=== PATIENT | female | born 1980 ===

== ENCOUNTER → 2017-12-25 | Day surgery (SDC) | payer BC ==
[~2017-12-25] MED LIST: Albuterol 0.083% 2.5 MG/3 ML Neb Soln NEB PRN; Bupivacaine 0.5% 30 ML SDV ONE; Dexamethasone 4 MG/ML 5 ML MDV ONE; HYDROmorphone 0.5 MG/0.5 ML Syringe IVPUSH PRN; HYDROmorphone 0.5 MG/0.5 ML Syringe ONE; Ketorolac 30 MG/ML SDV ONE; Lactated Ringers 1,000 ML ONE; Lidocaine 1% 4 ML ONE; Lidocaine 1% with EPINEPHrine 1:100,000 20 ML MDV ONE; Lidocaine 1%/Sod Bicarbonate in NS 8.4% 1 ML Syringe IDERM PRN; Midazolam 1 MG/ML 2 ML SDV IVPUSH PRN; Midazolam 1 MG/ML 2 ML SDV ONE; Neostigmine Methylsulfate 1 MG/ML 5 ML Syringe ONE; Ondansetron 4 MG/2 ML SDV IVPUSH PRN; Ondansetron 4 MG/2 ML SDV ONE; Propofol 200 MG/20 ML SDV ONE; Rocuronium 50 MG/5 ML Vial ONE; Sodium Chloride 0.9% 10 ML Syringe FLUSH PRN; Sodium Chloride 0.9% 50 ML SDV ONE; ceFAZolin 1 GM Vial ONE; diphenhydrAMINE 50 MG/ML SDV IVPUSH PRN; ePHEDrine 50 MG/ML SDV IVPUSH PRN; fentaNYL 100 MCG/2 ML SDV IVPUSH PRN; fentaNYL 250 MCG/5 ML SDV ONE; hydrOXYzine HCl 50 MG Tab PO ONE
[2017-12-25] MEDS: Lactated Ringers 1,000 ML IV SCH ×2 (07:05→10:01)
--- NOTE | 2017-12-25 07:31 | PCM.PREANE ---
Preanesthetic Assessment - Anesthesia/Transfusion/Family Hx Anesthesia History: Prior Anesthesia Without Reaction Family History of Anesthesia Reaction: No Transfusion History: No Prior Transfusion(s) Intubation History: Unknown - Review of Systems General: No Symptoms Pulmonary: No Symptoms (current every day smoker:1pack/day times 20 years) Cardiovascular: No Symptoms (Patient states HR always runs low.), Palpitations Gastrointestinal: No Symptoms (GERD), Abdominal Pain (#3/10), Diarrhea Neurological: No Symptoms Other: Reports: None, Depression - Physical Assessment NPO Status Date: 12/24/17 NPO Status Time: 22:00 Pulse: 46 O2 Sat by Pulse Oximetry: 99 Respiratory Rate: 16 Blood Pressure: 129/68 Temperature: 36.6 C Vital Signs: Last Vital Signs Temp 36.6 C 12/25/17 06:50 Pulse 46 L 12/25/17 06:50 Resp 16 12/25/17 06:50 BP 129/68 12/25/17 06:50 Pulse Ox 99 12/25/17 06:50 Height: 1.65 m Weight: 56.245 kg ASA Class: 2 Mental Status: Alert & Oriented x3 Airway Class: Mallampati = 2 Dentition: Reports: Partial (upper) Thyro-Mental Finger Breadths: 3 Mouth Opening Finger Breadths: 3 ROM/Head Extension: Full Lungs: Clear to Auscultation, Normal Respiratory Effort Cardiovascular: Regular Rate, Regular Rhythm, No Murmurs - Lab Values: Laboratory Last Values WBC 9.52 K/mm3 (3.98-10.04) 12/25/17 07:10 RBC 5.20 M/mm3 (3.98-5.22) 12/25/17 07:10 Hgb 15.1 gm/L (11.2-15.7) 12/25/17 07:10 Hct 44.0 % (34.1-44.9) 12/25/17 07:10 MCV 84.6 fl (79.4-94.8) 12/25/17 07:10 MCH 29.0 pg (25.6-32.2) 12/25/17 07:10 MCHC 34.3 g/dl (32.2-35.5) 12/25/17 07:10 RDW Std Deviation 40.4 fL (36.4-46.3) 12/25/17 07:10 Plt Count 291 K/mm3 (182-369) 12/25/17 07:10 MPV 10.3 fl (9.4-12.3) 12/25/17 07:10 Neut % (Auto) 49.2 % (34.0-71.1) 12/25/17 07:10 Lymph % (Auto) 36.9 % (19.3-51.7) 12/25/17 07:10 [place] % (Auto) 9.1 % (4.7-12.5) 12/25/17 07:10 Eos % (Auto) 4.5 (0.7-5.8) 12/25/17 07:10 Baso % (Auto) 0.1 % (0.1-1.2) 12/25/17 07:10 Neut # (Auto) 4.68 K/mm3 (1.56-6.13) 12/25/17 07:10 Lymph # (Auto) 3.51 K/mm3 (1.18-3.74) 12/25/17 07:10 [place] # (Auto) 0.87 K/mm3 (0.24-0.36) H 12/25/17 07:10 Eos # (Auto) 0.43 K/mm3 (0.04-0.36) H 12/25/17 07:10 Baso # (Auto) 0.01 K/mm3 (0.01-0.08) 12/25/17 07:10 Urine Color Light yellow (Yellow) 12/25/17 06:53 Urine Appearance Clear (Clear) 12/25/17 06:53 Urine pH 7.0 (5.0-8.0) 12/25/17 06:53 Ur Specific [place] 1.010 (1.005-1.030) 12/25/17 06:53 Urine Protein Negative (Negative) 12/25/17 06:53 Urine Glucose (UA) Negative (Negative) 12/25/17 06:53 Urine Ketones Negative (Negative) 12/25/17 06:53 Urine Occult Blood 2+ (Negative) H 12/25/17 06:53 Urine Nitrite Negative (Negative) 12/25/17 06:53 Urine Bilirubin Negative (Negative) 12/25/17 06:53 Urine Urobilinogen 0.2 (0.2-1.0) 12/25/17 06:53 Ur Leukocyte Esterase Negative (Negative) 12/25/17 06:53 Urine RBC 10-20 /hpf (0-5) H 12/25/17 06:53 Urine WBC 10-20 /hpf (0-5) H 12/25/17 06:53 Ur Epithelial Cells 0-5 /hpf (0-5) 12/25/17 06:53 Urine Bacteria Few /hpf (FEW) 12/25/17 06:53 Urine Mucus Not seen /hpf (FEW) 12/25/17 06:53 Urine HCG, Qual Negative (NEGATIVE) 12/25/17 06:33 All lab values reviewed and noted and within acceptable ranges to proceed with scheduled procedure. - Allergies Allergies/Adverse Reactions: Allergies Allergy/AdvReac Type Severity Reaction Status Date / Time No Known Allergies Allergy Verified 12/24/17 16:25 - Anesthesia Plan Pre-Op Medication Ordered: None - Acknowledgements Anesthesia Type Planned: General Anesthesia Pt an Appropriate Candidate for the Planned Anesthesia: Yes Alternatives and Risks of Anesthesia Discussed w Pt/Guardian: Yes Pt/Guardian Understands and Agrees with Anesthesia Plan: Yes PreAnesthesia Questionnaire HEENT History: Reports: Other (See Below) Other HEENT History: dentures Cardiovascular History: Reports: None Respiratory History: Reports: None Gastrointestinal History: Reports: None GAME WARDEN History: Reports: Other (See Below) Other OB/BYN History: pelvic pain, Musculoskeletal History: Reports: Other (See Below) Other Musculoskeletal History: right elbow dislocation, left wrist ganglion cyst removal Neurological History: Reports: None Psychiatric History: Reports: None Endocrine/Metabolic History: Reports: None Hematologic History: Reports: None Immunologic History: Reports: None Oncologic (Cancer) History: Reports: None Dermatologic History: Reports: None - Past Surgical History Head Surgeries/Procedures: Reports: None Cardiovascular Surgical History: Reports: None Respiratory Surgical History: Reports: None GI Surgical History: Reports: None Female Surgical History: Reports: Tubal Ligation Endocrine Surgical History: Reports: None Neurological Surgical History: Reports: None Musculoskeletal Surgical History: Reports: None Oncologic Surgical History: Reports: None Dermatological Surgical History: Reports: None - SUBSTANCE USE Smoking Status *Q: Current Every Day Smoker Recreational Drug Use History: No - HOME MEDS Home Medications: Home Meds Meloxicam 15 mg PO DAILY 12/24/17 [History] Pramipexole Di-HCl [Pramipexole Dihydrochloride] 0.5 mg PO BEDTIME 12/24/17 [ History] - CURRENT (IN HOUSE) MEDS Current Meds: Current Medications Lactated Ringer's (Ringers, Lactated) 1,000 mls @ 125 mls/hr IV ASDIRECTED DANNIE Stop: 12/25/17 23:00 Lidocaine/Sodium Bicarbonate (Buffered Lidocaine 1% In Ns 8.4%) 0.25 ml IDERM ONETIME PRN PRN Reason: Prior to IV Start Stop: 12/25/17 18:00 Sodium Chloride (Saline Flush) 10 ml FLUSH ASDIRECTED PRN PRN Reason: Keep Vein Open Stop: 12/25/17 18:00 Discontinued Medications Bupivacaine HCl (Marcaine 0.5%) Confirm Administered Dose 30 ml .ROUTE .STK-MED ONE Stop: 12/25/17 07:03 Cefazolin Sodium (Ancef) Confirm Administered Dose 2 gm .ROUTE .STK-MED ONE Stop: 12/25/17 07:10 Dexamethasone (Dexamethasone) Confirm Administered Dose 20 mg .ROUTE .STK-MED ONE Stop: 12/25/17 07:10 Fentanyl (Sublimaze) Confirm Administered Dose 250 mcg .ROUTE .STK-MED ONE Stop: 12/25/17 07:11 Lidocaine HCl (Xylocaine-Mpf 1%) Confirm Administered Dose 4 mls @ as directed .ROUTE .STK-MED ONE Stop: 12/25/17 07:10 Lactated Ringer's (Ringers, Lactated) Confirm Administered Dose 1,000 mls @ as directed .ROUTE .STK-MED ONE Stop: 12/25/17 07:10 Ketorolac Tromethamine (Toradol) Confirm Administered Dose 30 mg .ROUTE .STK- MED ONE Stop: 12/25/17 07:10 Lidocaine/Epinephrine (Xylocaine 1% With Epinephrine 1:100,000) Confirm Administered Dose 20 ml .ROUTE .STK-MED ONE Stop: 12/25/17 07:03 Midazolam HCl (Versed 1 Mg/Ml) Confirm Administered Dose 2 mg .ROUTE .STK-MED ONE Stop: 12/25/17 07:10 Ondansetron HCl (Zofran) Confirm Administered Dose 4 mg .ROUTE .STK-MED ONE Stop: 12/25/17 07:10 Propofol (Diprivan 20 Ml) Confirm Administered Dose 200 mg .ROUTE .STK-MED ONE Stop: 12/25/17 07:10 Rocuronium [place] (Zemuron) Confirm Administered Dose 50 mg .ROUTE .STK-MED ONE Stop: 12/25/17 07:10 Sodium Chloride (Normal Saline) Confirm Administered Dose 50 ml .ROUTE .STK-MED ONE Stop: 12/25/17 07:03
--- NOTE | 2017-12-25 09:25 | PCM.POSTAN ---
POST ANESTHESIA ASSESSMENT - MENTAL STATUS Mental Status: Alert - VITAL SIGNS Pulse Rate: 71 SaO2: 100 Resp Rate: 15 Blood Pressure: 108/80 Temperature: 36.0 C - RESPIRATORY Respiratory Status: Respiratory Rate WNL, Airway Patent, O2 Saturation Stable, Supplemental Oxygen - CARDIOVASCULAR CV Status: Pulse Rate WNL, Blood Pressure Stable - GASTROINTESTINAL GI Status: No Symptoms - POST OP HYDRATION Hydration Status: Adequate & Stable
[2017-12-25] MEDS: Acetaminophen/oxyCODONE 325-5 MG Tab PO PRN ×2 (10:15→15:00)
--- NOTE | 2017-12-25 12:47 | PCM48HPAN ---
Post Anesthesia Note - EVALUATION WITHIN 48HRS OF ANESTHETIC Vital Signs in Normal Range: Yes Patient Participated in Evaluation: Yes Respiratory Function Stable: Yes Airway Patent: Yes Cardiovascular Function Stable: Yes Hydration Status Stable: Yes Pain Control Satisfactory: Yes Nausea and Vomiting Control Satisfactory: Yes Mental Status Recovered: Yes
--- NOTE | 2017-12-26 08:13 | OR ---
DATE OF OPERATION: 12/25/2017 SURGEON: Anil Pulido MD PREOPERATIVE DIAGNOSIS: 1. Chronic pelvic pain. 2. Dysmenorrhea. POSTOPERATIVE DIAGNOSIS: 1. Chronic pelvic pain. 2. Dysmenorrhea. 3. Pelvic adhesions. ANESTHESIA: General endotracheal anesthesia per Tiffanie Philippe CRNA. ASSISTANTS: 1. assistant customer service manager is Damien Bertrand MD. 2. Second facilities assistant is Eliseo Arzate MD. OPERATION PERFORMED: Laparoscopy, total vaginal hysterectomy with bilateral salpingectomy. ESTIMATED BLOOD LOSS: 10 mL. FLUIDS IN: 1400 mL LR. URINE OUTPUT: 250 mL. SURGERY DURATION: 44 minutes. COMPLICATIONS: None. FINDINGS: On evaluation with laparoscopy, the patient is noted to have omental adhesion to the right fallopian tube right at the area of the partial salpingectomy. The ovaries appeared functional bilaterally. The distal portion of fallopian tubes appeared normal. The patient is status post bilateral partial salpingectomy for tubal ligation purposes. Anterior and posterior cul-de-sac were within normal limits. The appendix was flaccid and noninflamed. The liver edge was noninflamed. DESCRIPTION OF PROCEDURE: The patient was taken to the operating room and placed in the supine position on the operating table. It should be noted that she was appropriately consented for the procedure. She received 2 grams of Ancef IV preoperatively for infection prophylaxis and had sequential compression stockings in place for DVT prophylaxis. She was given general endotracheal anesthesia. After adequate anesthesia, the patient was placed in a dorsal lithotomy position and prepped and draped in the usual fashion for the procedure. A Vasquez catheter was placed in the patient's bladder and a sponge stick was placed into the vagina for manipulation purposes. The infraumbilical incision site was then infiltrated with Marcaine 0.5%, approximately 5 mL as was a suprapubic midline site. The 5 mm infraumbilical incision site was made longitudinally and a Veress needle was placed. With this needle, pneumoperitoneum was established using approximately 3 L of CO2. The laparoscopic sleeve and trocar were then placed and laparoscope was placed. Under direct visualization, the lower sleeve was then placed. The pelvis was evaluated and found to have findings as described above. The very mild omental adhesion was taken down from the fallopian tube using blunt dissection. With the exam under anesthesia and the findings on laparoscopy, decision was made to proceed with a total vaginal hysterectomy. Laparoscope was removed. The sleeves were left in place. The patient is repositioned into a dorsal lithotomy position and a total vaginal hysterectomy with bilateral salpingectomy was performed. After repositioning the patient, a weighted speculum was placed in vagina. Cervix was grasped with a double tooth tenaculum and infiltrated with lidocaine 0.25% with epinephrine, approximately 20 mL total. After adequate infiltration, the epithelium around the cervix was incised in full circumference. This epithelium was pushed well back off the cervix and posterior cul-de-sac was entered without problems. The left uterosacral ligament was then grasped with EnSeal vessel closure device, and using cautery, the left uterosacral and then right uterosacral ligament were then developed. Anterior cul-de-sac was then entered without problems. The cardinal ligament, uterine vasculature, and broad ligament were then taken down using serial bites with the EnSeal vessel closure device. The uterus was then inverted and a Ap clamp was placed across the upper broad ligament and fallopian tube, round ligament pedicle. The same was done on both sides, and the specimen was completely removed. Each of these pedicles was then suture ligated using a Ap stitch of #1 Vicryl. The fallopian tubes were removed using the EnSeal vessel closure device. All were sent in specimen container as 1 specimen. At this time, hemostasis was confirmed. The posterior vaginal cuff was run in a locked fashion from approximately the 2 o'clock to the 10 o'clock position posteriorly for hemostasis reasons. Sponge, instrument, and needle counts were correct at this time, and the vaginal cuff was closed with a running locked suture from right side to left side. Hemostasis was confirmed at this time. At this point, the patient was repositioned and gloves were changed and pneumoperitoneum was re-established with CO2. The laparoscope was then placed, and under direct visualization, it was noted that no bleeding was noted and the pelvis appeared status post hysterectomy. The lower sleeve was then removed under direct visualization and pneumoperitoneum were reversed. The upper sleeve was then removed. Each of the 2 laparoscopic incision sites were then closed using 3-0 Monocryl and a subcuticular stitch. They were further approximated with Dermabond skin glue. At this time, the patient had Vasquez catheter removed, was returned to supine position and awakened from general endotracheal anesthesia. She tolerated the procedure well and left the operating room in satisfactory condition. MMODAL /[id number]
== END | disposition home or self-care (01) ==
LOC: JD.SDS 06:41
PROVIDERS: ATTEND Obstetrics & Gynecology
DX: R10.2 Pelvic and perineal pain (principal); N94.6 Dysmenorrhea, unspecified; N87.9 Dysplasia of cervix uteri, unspecified; N73.6 Female pelvic peritoneal adhesions (postinfective); F17.210 Nicotine dependence, cigarettes, uncomplicated; F32.9 Major depressive disorder, single episode, unspecified; K21.9 Gastro-esophageal reflux disease without esophagitis; Z98.51 Tubal ligation status
CPT/HCPCS: 36415; 58262; 58660; 81001; 81025; 85025; A9270; J0690; J1100; J1170; J1885; J2250; J2405; J2704; J2710; J3010; J3490; J7120; J2001